=== PATIENT | male | born 1995 | race Asian ===

== ENCOUNTER 2017-04-16 10:41 | Emergency (ER) | payer OTHER ==
[~2017-04-16] VITALS: Ht 157.5 cm; Wt 50.8 kg
[2017-04-16 10:49] VITALS: TEMP 36.5; Ht 157.5 cm; Wt 50.8 kg
[2017-04-16] MEDS ORDERED: XYLOCAINE 1%/SOD BICARB 20 ML VIAL INFIL ONE (11:30)
[2017-04-16] MEDS ORDERED: OPTIRAY 320 IV PRN (11:45)
[2017-04-16 11:54] LABS: ISTAT CREATININE 0.9 mg/dl (0.6-1.3); ISTAT HEMOGLOBIN 15.3 g/dl (14.0-18.0); ISTAT IONIZED CALCIUM 1.12 mmol/l (1.12-1.32)
[2017-04-16 12:06] LABS: BASO % 0.3 %; BASO ABS # 0.04 K/uL (0-0.2); COMPLETE YES; EOS % 0.7 %; HEMATOCRIT 43.4 % (42-52); IG% 0.7 %; LYMPH % 8.6 %; LYMPH ABS # 1.19 K/uL (1.2-3.4); MEAN CELL VOLUME 87.7 fL (80-100); MEAN CORPUSCULAR HEMOGLOBIN 31.3 pg (25-34); MEAN CORPUSCULAR HGB CONC 35.7 g/dl (32-36); MEAN PLATELET VOLUME 10.6 fL (7.4-10.4); MONO % 5.1 %; NEUT % 84.6 %; PLATELET COUNT 255 K/uL (130-400); RED BLOOD COUNT 4.95 M/uL (4.7-6.1); WHITE BLOOD COUNT 13.83 K/uL (4.8-10.8)
[2017-04-16 12:13] LABS: BUN/CREATININE RATIO 17.6 (10-20); CALCIUM 8.7 mg/dl (8.5-10.1); CREATININE 1.13 mg/dl (0.60-1.40); POTASSIUM 3.2 mmol/L (3.5-5.1)
[2017-04-16 12:15] LABS: INR 1.1 (0.9-1.1); PROTHROMBIN TIME (PATIENT) 11.4 SECONDS (9.0-12.0)
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
[2017-04-16] MEDS ORDERED: CEFTRIAXONE SOD INJ 1 GM ADDVIAL IV STA (13:49)
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
[2017-04-16 14:30] VITALS: BP 115/76; PULSE 107; O2SAT 97
== END 2017-04-16 14:31 | disposition short-term general hospital (02) ==
LOC: EDBD 10:41 → C.EDA 10:44
DX: S02.119A Unspecified fracture of occiput, initial encounter for closed fracture (principal); S02.19XA Other fracture of base of skull, initial encounter for closed fracture; S02.2XXA Fracture of nasal bones, initial encounter for closed fracture; S06.5X0A Traumatic subdural hemorrhage without loss of consciousness, initial encounter; V03.10XA Pedestrian on foot injured in collision with car, pick-up truck or van in traffic accident, initial encounter